=== PATIENT | female | born 1965 | race Caucasian/White ===

== ENCOUNTER → 2016-10-21 | Outpatient (CLI) | payer BC ==
[~2016-10-21] MED LIST: ESCI10TA17 PO; FLX10 PO; LMCUNK; OXYC1TAB3 PO
--- NOTE | 2016-10-21 16:42 | MAMMOGRAPHY REPORT ---
BILATERAL DIGITAL SCREENING MAMMOGRAM TOMOSYNTHESIS WITH CAD: 10/21/2016 CLINICAL HISTORY: Routine screening. Patient has no complaints. TECHNIQUE: Breast tomosynthesis in addition to standard 2D mammography was performed. Current study was also evaluated with a Computer Aided Detection (CAD) system. COMPARISON: Comparison is made to exams dated: 10/20/2015 mammogram, 10/15/2013 mammogram, 10/16/2014 mammogram, 10/12/2012 mammogram, and 10/02/2012 mammogram - [facility]. BREAST COMPOSITION: The tissue of both breasts is heterogeneously dense, which may obscure small ma sses. FINDINGS: No suspicious masses, calcifications, or areas of architectural distortion are noted in e ither breast. There has been no significant interval change compared to prior exams. IMPRESSION: ACR BI-RADS CATEGORY 1: NEGATIVE There is no mammographic evidence of malignancy. A 1 year screening mammogram is recommended. The p atient will receive written notification of the results. Approximately 10% of breast cancers are not detected with mammography. A negative mammographic repor t should not delay biopsy if a clinically suggestive mass is present. Leslie Menon M.D. ah/:10/21/2016 16:26:59 Ups Driver: Sadaf JEFFERSON(Alan)(M), [facility] letter sent: Normal 1/2 BI-RADS Code: ACR BI-RADS Category 1: Negative
== END | disposition home or self-care (01) ==
LOC: C.MAMM 16:05
PROVIDERS: ATTEND Nurse Practitioner
DX: Z12.31 Encounter for screening mammogram for malignant neoplasm of breast (principal)

== ENCOUNTER → 2017-05-02 | Outpatient (CLI) | payer BC ==
--- NOTE | 2017-05-02 09:46 | DIAGNOSTIC IMAGING REPORT ---
LEFT KNEE 1 OR 2 VIEWS ROUTINE CLINICAL HISTORY: Left knee pain. COMPARISON: None FINDINGS: Alignment of the left knee is anatomic. There is no fracture or suspicious lesion. There is a moderate-sized left knee joint effusion. Mild tricompartmental osteophytosis is noted. IMPRESSION: 1. No acute fracture. 2. Moderate-sized left knee joint effusion. 3. Mild tricompartmental osteophytosis of the left knee. Minimal medial component joint space narrowing. Electronically signed by: Deshaun Monge M.D. 05/02/2017 9:45 AM Dictated Date/Time: 05/02/2017 9:44 AM
== END | disposition home or self-care (01) ==
LOC: C.LABPVFM 09:24
PROVIDERS: ATTEND Neuromusculoskeletal Medicine & OMM
DX: M25.562 Pain in left knee (principal); M25.462 Effusion, left knee

== ENCOUNTER → 2017-07-05 | Outpatient (CLI) | payer BC | END | disposition home or self-care (01) | LOC: C.PAPS 11:51 | PROVIDERS: ATTEND Obstetrics & Gynecology | DX: Z01.419 Encounter for gynecological examination (general) (routine) without abnormal findings (principal) ==

== ENCOUNTER → 2017-10-25 | Outpatient (CLI) | payer BC ==
--- NOTE | 2017-10-26 15:18 | MAMMOGRAPHY REPORT ---
BILATERAL DIGITAL SCREENING MAMMOGRAM TOMOSYNTHESIS WITH CAD: 10/25/2017 CLINICAL HISTORY: Routine screening. TECHNIQUE: Breast tomosynthesis in addition to standard 2D mammography was performed. Current study was also evaluated with a Computer Aided Detection (CAD) system. COMPARISON: Comparison is made to exams dated: 10/21/2016 mammogram, 10/20/2015 mammogram, 10/16/2014 m ammogram, 10/15/2013 mammogram, 10/02/2012 mammogram, and 10/12/2012 mammogram - [facility]ter. BREAST COMPOSITION: The tissue of both breasts is heterogeneously dense, which may obscure small mas ses. FINDINGS: The parenchymal pattern is unchanged. No developing mass, architectural distortion or clus ter of suspicious microcalcifications is seen in either breast. IMPRESSION: ACR BI-RADS CATEGORY 2: BENIGN There is no mammographic evidence of malignancy. A 1 year screening mammogram is recommended. The pa tient will receive written notification of the results. Approximately 10% of breast cancers are not detected with mammography. A negative mammographic report should not delay biopsy if a clinically suggestive mass is present. Almita Hernandez M.D. ay/:10/25/2017 16:31:43 Compensation Vice President: Shama JEFFERSON(Alan)([place]), [facility] letter sent: Normal 1/2 BI-RADS Code: ACR BI-RADS Category 2: Benign
== END | disposition home or self-care (01) ==
LOC: C.MAMM 15:36
PROVIDERS: ATTEND Obstetrics & Gynecology
DX: Z12.31 Encounter for screening mammogram for malignant neoplasm of breast (principal)

== ENCOUNTER → 2017-11-01 | Outpatient (CLI) | payer BC ==
[2017-11-01 12:20] LABS: BASO % 0.3 %; BASO ABS # 0.03 K/uL (0-0.2); EOS % 1.4 %; EOS ABS # 0.14 K/uL (0-0.5); HEMATOCRIT 44.8 % (37-47); HEMOGLOBIN 15.1 g/dL (12.0-16.0); IG# 0.02 K/uL (0.00-0.02); LYMPH % 18.8 %; LYMPH ABS # 1.87 K/uL (1.2-3.4); MEAN CORPUSCULAR HEMOGLOBIN 30.3 pg (25-34); MEAN CORPUSCULAR HGB CONC 33.7 g/dl (32-36); MEAN PLATELET VOLUME 10.4 fL (7.4-10.4); MONO % 10.7 %; MONO ABS # 1.07 K/uL (0.11-0.59); NEUT % 68.6 %; NEUT ABS # 6.84 K/uL (1.4-6.5); PLATELET COUNT 271 K/uL (130-400); RED CELL DISTRIBUTION WIDTH CV 12.8 % (11.5-14.5); WHITE BLOOD COUNT 9.97 K/uL (4.8-10.8)
[2017-11-01 13:22] LABS: ALBUMIN 3.7 gm/dl (3.4-5.0); ALT/SGPT 30 U/L (12-78); AST/SGOT 20 U/L (15-37); BLOOD UREA NITROGEN 13 mg/dl (7-18); CALCIUM 8.9 mg/dl (8.5-10.1); CARBON DIOXIDE 23 mmol/L (21-32); CREATININE 0.84 mg/dl (0.60-1.20); GLUCOSE 97 mg/dl (70-99); POTASSIUM 4.1 mmol/L (3.5-5.1); SODIUM 138 mmol/L (136-145); TOTAL PROTEIN 7.5 gm/dl (6.4-8.2)
[2017-11-01 13:32] LABS: ALKALINE PHOSPHATASE 62 U/L (45-117)
== END | disposition home or self-care (01) ==
LOC: C.LABPVFM 07:55
PROVIDERS: ATTEND Psychiatry & Neurology Neurology
DX: R25.1 Tremor, unspecified (principal)

== ENCOUNTER → 2017-11-02 | Outpatient (CLI) | payer BC ==
--- NOTE | 2017-11-02 17:59 | DIAGNOSTIC IMAGING REPORT ---
MRI OF THE BRAIN WITHOUT IV CONTRAST CLINICAL HISTORY: Tremor. COMPARISON STUDY: No priors. TECHNIQUE: MRI of the brain was performed utilizing various T1 and T2-weighted sequences in the axial, sagittal, and coronal planes. IV contrast was not administered for this examination. FINDINGS: Brain parenchyma: The brain parenchyma is normal in appearance. There is no hemorrhage or mass effect. There is no restricted diffusion to suggest acute ischemia. Gtz-white matter differentiation is preserved. No extra-axial fluid collection is seen. The cerebellar tonsils are normal in configuration. Ventricles, sulci, and cisterns: Normal in configuration. Pituitary and sella: Unremarkable. Intracranial vasculature: Normal flow voids are maintained at the skull base. Orbits: The bony orbits are grossly intact. Orbital contents are normal in appearance. Sinuses and mastoids: Clear. Calvarium: Unremarkable. Cervical cord: Partially visualized cervical spinal cord is normal in morphology and signal intensity. IMPRESSION: No acute intracranial abnormality. Electronically signed by: Jani Lester M.D. 11/02/2017 5:58 PM Dictated Date/Time: 11/02/2017 5:56 PM
== END | disposition home or self-care (01) ==
LOC: C.MRI 17:10
PROVIDERS: ATTEND Psychiatry & Neurology Neurology
DX: R25.1 Tremor, unspecified (principal)

== ENCOUNTER → 2018-04-02 | Day surgery (SDC) | payer BC ==
[2018-03-26 14:15] VITALS: BMI 36.0
[~2018-04-02] VITALS: Ht 172.7 cm; Wt 106.8 kg
[~2018-04-02] MED LIST changes: +CALC1TAB27 PO; -FLX10 PO; +LIDOCAINE HCL 2% 2 ML VIAL (20MG/ML) ONE; -LMCUNK; +MIDAZOLAM HCL 1 MG/ML 2ML VIAL ONE; +OMEG10007 PO; +ONDANSETRON INJ 2 MG/ML 2 ML VIAL ONE; -OXYC1TAB3 PO; +PROPOFOL IV EMULSION 10 MG/ML 20 ML VIAL ONE; +RANI150T3 PO; +SODIUM CHLORIDE 0.9% 500ML 500 ML IV ONE
[2018-04-02 14:25] VITALS: Ht 172.7 cm; Wt 106.8 kg
--- NOTE | 2018-04-02 14:45 | Endo History and Physical ---
History & Physical Date of Service: Apr 02, 2018. Chief Complaint: SCREENING FOR COLON CANCER Referring Physician: DR. WORKMAN History of Present Illness 52 yo CF who presents for screening colonoscopy. Past Surgical History Hx Cardiac Surgery: No Hx Internal Defibrillator: No Hx Pacemaker: No Hx Abdominal Surgery: Yes (TUBAL) Hx of Implantable Prosthesis: No Hx Post-Op Nausea and Vomiting: No Hx Cancer Surgery: No Hx Thoracic Surgery: No Hx Orthopedic: No Hx Urinary Tract Surgery: No Family History None Social History Smoking Status: Never Smoker Hx Substance Use: No Hx Alcohol Use: Yes (OCC SOCIAL) Allergies Coded Allergies: Adhesives (Verified Allergy, Unknown, REDNESS SKIN WITH TAPE, 03/26/18) NO KNOWN DRUG ALLERGIES (Verified Allergy, Unknown, NONE, 03/26/18) Current Medications Reported Home Medications Medications Dose Route/Sig Max Daily Dose Days Date Category [place]-3 (Fish Oil) 1 Ea Cap 1 Cap PO QAM 03/26/18 Reported Calcium Magnesium & Zinc (Nlahpzz-Piitrtpon-Ugys) 1 Tab Tab 1 Tab PO QAM 03/26/18 Reported Zantac (Ranitidine HCl) 150 Mg Tab 150 Mg PO PRN 03/26/18 Reported Lexapro (Escitalopram Oxalate) 10 Mg Tab 10 Mg PO QAM 09/22/08 Reported Vital Signs Weight (Kilograms): 106.82 Height (Feet): 5 Height (Inches): 8 Date Time Temp Pulse Resp B/P (MAP) Pulse Ox O2 Delivery O2 Flow Rate FiO2 04/02/18 14:31 37.0 80 18 152/92 (112) 94 Room Air Physical Exam General Appearance: WD/WN, no apparent distress Respiratory/Chest: Auscultation: breath sounds normal Cardiovascular: Heart Auscultation: RRR Abdomen: Bowel Sounds: normal Inspection & Palpation: soft, non-distended, no tenderness, guarding & rebound Assessment and Plan Assessment: 52 yo CF who presents for screening colonoscopy. Plan: Proceed with colonoscopy.
--- NOTE | 2018-04-02 15:46 | Discharge Instructions ---
Endoscopy Patient Instructions Date / Procedure(s) Performed Apr 02, 2018. Colonoscopy Allergy Information Coded Allergies: Adhesives (Verified Allergy, Unknown, REDNESS SKIN WITH TAPE, 03/26/18) NO KNOWN DRUG ALLERGIES (Verified Allergy, Unknown, NONE, 03/26/18) Discharge Date / Findings Apr 02, 2018. Colon polyp Diverticulosis Internal hemorrhoids Medication Instructions OK to resume all medications today as prescribed Reported Home Medications Medications Dose Route/Sig Max Daily Dose Days Date Category Terral-3 (Fish Oil) 1 Ea Cap 1 Cap PO QAM 03/26/18 Reported Calcium Magnesium & Zinc (Klaagct-Oweucoypz-Mcwp) 1 Tab Tab 1 Tab PO QAM 03/26/18 Reported Zantac (Ranitidine HCl) 150 Mg Tab 150 Mg PO PRN 03/26/18 Reported Lexapro (Escitalopram Oxalate) 10 Mg Tab 10 Mg PO QAM 09/22/08 Reported Provider Instructions Activity Restrictions - No exercising or heavy lifting for 24 hours. - Do not drink alcohol the day of the procedure. - Do not drive a car or operate machinery until the day after the procedure. - Do not make any important decisions or sign important papers in 24 hours after the procedure. Following Day: - Return to full activity which may include returning to work/school. Diet Start your diet with liquids and light foods (jello, soup, juice, toast). Then eat your usual diet if not nauseated. Treatment For Common After Affects For mild abdominal pain, bloating, or excessive gas: - Rest - Eat lightly - Lie on right side Follow-Up Information Follow-up with DR. WORKMAN as scheduled Anesthesia Information What You Should Know You have had a procedure that required some medicine to reduce anxiety and discomfort. This treatment is called moderate sedation. After receiving the treatment, you may be sleepy, but you will be able to breathe on your own. The effects of the treatment may last for several hours. Follow these instructions along with Activity/Diet recommendations noted above: * Do NOT do anything where dizziness or clumsiness would be dangerous. * Rest quietly at home today, then you can be up and about tomorrow. * Have a responsible person stay with you the rest of today. * You may have had an I.V. today. If so, you may take the dressing off later today. Recommendations Call your doctor if: * Trouble breathing * Continuous vomiting for more than 24 hours * Temperature above 101 degrees * Severe abdominal pain or bloating * Pain not relieved by pain medicine ordered * There is increased drainage or redness from any incision * A large amount of rectal bleeding greater than 2-3 tablespoons. (If you had a polyp/s removed or have hemorrhoids, a small amount of blood - from the rectum is to be expected.) * You have any unanswered questions or concerns. IN THE EVENT OF A SERIOUS EMERGENCY, GO TO THE NEAREST EMERGENCY ROOM Your discharge instructions were prepared by provider Earnest Issa. Patient Instructions Signature Page Sonja White Patient (or Guardian) Signature/Date: I have read and understand the instructions given to me by my caregivers. Caregiver/RN/Doctor Signature/Date: The above-named patient and/or guardian has received patient instructions on this date. + Original Patient Signature Page (only) stays with chart. Please make copy for patient.
--- NOTE | 2018-04-02 15:53 | GI REPORT ---
Patient Name: Sonja White Procedure Date: 04/02/2018 3:24 PM Date of : 1965 Admit Type: Outpatient Age: 52 Gender: Female Attending MD: Earnest Issa DO Procedure: Colonoscopy Providers: Earnest Issa DO Referring MD: CASSIDY Bloom Indications: Screening for colorectal malignant neoplasm Medicines: Monitored Anesthesia Care Complications: No immediate complications. Estimated Blood Loss: Estimated blood loss: none. Procedure: Pre-Anesthesia Assessment: - Prior to the procedure, a History and Physical was performed, and patient medications and allergies were reviewed. The patient's tolerance of previous anesthesia was also reviewed. The risks and benefits of the procedure and the sedation options and risks were discussed with the patient. All questions were answered, and informed consent was obtained. Prior Anticoagulants: The patient has taken no previous anticoagulant or antiplatelet agents. ASA Grade Assessment: II - A patient with mild systemic disease. After reviewing the risks and benefits, the patient was deemed in satisfactory condition to undergo the procedure. After I obtained informed consent, the scope was passed under direct vision. Throughout the procedure, the patient's blood pressure, pulse, and oxygen saturations were monitored continuously. The scope was introduced through the anus and advanced to the terminal ileum. The colonoscopy was performed without difficulty. The patient tolerated the procedure well. The quality of the bowel preparation was good. The terminal ileum, ileocecal valve, appendiceal orifice, and rectum were photographed. Findings: The perianal and digital rectal examinations were normal. A 5 mm polyp was found in the sigmoid colon. The polyp was sessile. The polyp was removed with a hot snare. Resection and retrieval were complete. Multiple small-mouthed diverticula were found in the sigmoid colon. Non-bleeding internal hemorrhoids were found during retroflexion. The hemorrhoids were small. Impression: - One 5 mm polyp in the sigmoid colon, removed with a hot snare. Resected and retrieved. - Diverticulosis in the sigmoid colon. - Non-bleeding internal hemorrhoids. Recommendation: - Resume previous diet. - Continue present medications. - Repeat colonoscopy for surveillance based on pathology results. - Return to primary care physician as previously scheduled. Earnest Issa DO 04/02/2018 3:53:35 PM This report has been signed electronically. Note Initiated On: 04/02/2018 3:24 PM Number of Addenda: 0 I attest to the content of the Intraoperative Record and orders documented therein, exceptions below {[id number]}
[2018-04-02 16:11] VITALS: BP 113/80; PULSE 79; TEMP 37; O2SAT 97
--- NOTE | 2018-04-02 16:12 | Anesthesiology Progress Note ---
Anesthesia Post Op Note Date & Time Apr 02, 2018 at 16:12 Vital Signs Pain Intensity: 0 Vital Signs Past 12 Hours Date Time Temp Pulse Resp B/P (MAP) Pulse Ox O2 Delivery O2 Flow Rate FiO2 04/02/18 15:56 79 20 126/77 (93) 97 Room Air 04/02/18 15:41 87 20 113/79 (90) 97 Room Air 04/02/18 14:31 37.0 80 18 152/92 (112) 94 Room Air Notes Mental Status: alert / awake / arousable, participated in evaluation Pt Amnestic to Procedure: Yes Nausea / Vomiting: adequately controlled Pain: adequately controlled Airway Patency, RR, SpO2: stable & adequate BP & HR: stable & adequate Hydration State: stable & adequate Anesthetic Complications: no major complications apparent
== END | disposition home or self-care (01) ==
LOC: C.GI 14:03
PROVIDERS: ATTEND Internal Medicine
DX: Z12.11 Encounter for screening for malignant neoplasm of colon (principal); D12.5 Benign neoplasm of sigmoid colon; K21.9 Gastro-esophageal reflux disease without esophagitis; K57.30 Diverticulosis of large intestine without perforation or abscess without bleeding; K64.8 Other hemorrhoids